=== PATIENT | male | born 1985 | race Caucasian/White ===

== ENCOUNTER 2020-06-14 12:56 | Emergency (ER) | payer OTHER ==
[~2020-06-14] VITALS: Ht 185.4 cm; Wt 107.4 kg
[2020-06-14 13:10] VITALS: BP 155/90
[2020-06-14] MEDS ORDERED: TETRACAINE 0.5% OPHTH SOLUTION 4ML BOTTLE. OS ONE (13:15)
[2020-06-14] MEDS ORDERED: FLUORESCEIN 1MG EYE STRIP. OS ONE (13:15)
[2020-06-14] MEDS ORDERED: TETRACAINE 0.5% OPHTH SOLUTION 4ML BOTTLE. ONE (13:17)
[2020-06-14] MEDS ORDERED: FLUORESCEIN 1MG EYE STRIP. ONE (13:18)
[2020-06-14] MEDS ORDERED: POLY10DR OP (13:54)
--- NOTE | 2020-06-14 13:55 | PHYS DOC ---
Past History Past Medical History: No Pertinent History Past Surgical History: No Surgical History Alcohol Use: Occasionally Adult General Chief Complaint Chief Complaint: EYE PROBLEMS HPI HPI Patient is a 34-year-old male presents to emergency department complaining of getting something in his left eye approximately 3 days ago when he was working underneath his car. Patient states that he flushed it at the time however it still feels like something is in his eye. Patient reports he thinks he might have a little blurriness however he attributes this to his eye being watery. Patient reports mild pain of 2/10 to 1-10 pain scale when he blinks. Patient states he can feel it when he closes his eyes and moves his eyes around unde rneath his closed eyelids, patient denies any problems to his right eye. Patient denies any other physical complaints or physical concerns. 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 Review of Systems Review of Systems 14 body systems of review of systems have been reviewed. See HPI for pertinent positives and negative responses, otherwise all other systems are negative, nonpertinent or noncontributory. Current Medications Current Medications Current Medications Medications (Trade) Dose Ordered Sig/Ana Start Time Stop Time Status Last Admin Dose Admin Fluorescein Sodium (Ful-Cori 1mg) 1 strip STK-MED ONCE 06/14/20 13:18 06/14/20 13:18 DC Tetracaine HCl (Tetracaine) 40 drop STK-MED ONCE 06/14/20 13:17 06/14/20 13:18 DC Allergies Allergies Allergies Coded Allergies Type Severity Reaction Last Updated Verified No Known Drug Allergies 06/14/20 No Physical Exam Physical Exam Constitutional: Well developed, well nourished, no acute distress, non-toxic appearance. 34-year-old male in no apparent distress. HENT: Normocephalic, atraumatic, bilateral external ears normal, oropharynx moist, no oral exudates, nose normal. Eyes: PERRLA, EOMI, conjunctiva normal, no discharge. No foreign bodies noted underneath his left eyelid fluorescein eye exam with Carter lamp revealed 1 mm in diameter corneal abrasion at the 2 o'clock position just outside the iris. No globular trauma appreciated, no redness or erythema appreciated. No edema of the eye appreciated. Pupils 3 mm. Cardiovascular: No cyanosis, distal cap refill less than 2 seconds. Lungs & Thorax: No obvious adventitious lung sounds appreciated audibly, patient is in no respiratory distress. Skin: Warm, dry, no erythema, no rash. Neurologic: Alert and oriented X 3, normal motor function, normal sensory function, no focal deficits noted. Psychologic: Affect normal, judgement normal, mood normal. Current Patient Data Vital Signs Vital Signs Date Time Temp Pulse Resp B/P (MAP) Pulse Ox O2 Delivery O2 Flow Rate FiO2 06/14/20 13:10 97.7 82 16 155/90 (111) 98 Room Air EKG EKG [] Radiology/Procedures Radiology/Procedures [] Heart Score C/O Chest Pain: No Risk Factors: Risk Factors: DM, Current or recent (<one month) smoker, HTN, HLP, family history of CAD, obesity. Risk Scores: Risk Factors: DM, Current or recent (<one month) smoker, HTN, HLP, family history of CAD, obesity. Course & Med Decision Making Course & Med Decision Making Pertinent Labs and Imaging studies reviewed. (See chart for details) 34-year-old male, vital signs reviewed, presents emergency department concerning getting something into his left eye 3 days ago when working on a car. Physical examination concerning for possible foreign body versus corneal abrasion left eye. 2 drops tetracaine placed into the left eye. Flushed eye with 30 cc normal saline, a visual examination under each eyelid using magnified Carter lamp with white light assistance did not find any foreign bodies. Fluorescein stain exam with black light Carter lamp assistance revealed a 1 mm diameter corneal abrasion at the 2 o'clock position just outside of the iris. Discussed findings with patient. Discussed starting patient on Polytrim eyedrops 4 times a day for the next 5 days. Patient gave verbal understanding of discharge home instructions, eyedrop use, return to ER precautions or concerns, will follow up with the [facility] ophthalmology soon. Patient had no further questions or concerns and was discharged home without incident. Dragon Disclaimer Dragon Disclaimer This electronic medical record was generated, in whole or in part, using a voice recognition dictation system. Departure Departure: Impression: Primary Impression: Corneal abrasion, left Disposition: 01 HOME / SELF CARE / HOMELESS Condition: GOOD Referrals: PCP,NO (PCP) Patient Instructions: Eye - Corneal Abrasion Additional Instructions: You were examined in the emergency department today for left eye irritation after a foreign body had fallen into it while you are doing out of work. A c lose examination of the eye was performed and there was no foreign bodies or substances in the eye. However during the eye stain procedure, there was evidence of a scratch/corneal abrasion on your left eye. These tend to heal very quickly, please use the antibiotic drops I have prescribed 4 times a day in the left eye for the next 5 days. Please follow-up with your ophthalmology specialist at the [facility] soon. Please return to the emergency department for worsening symptoms or other concerns. You may use [id number] Tylenol or Motrin for ongoing discomfort, however please see your eye doctor soon for ongoing discomfort. Please return to the emergency room immediately for vision changes. EMERGENCY DEPARTMENT GENERAL DISCHARGE INSTRUCTIONS Thank you for coming to [facility] (ED) today and trusting us with you care. We trust that you had a positivie experience in our Emergency Department. If you wish to speak to the department management, you may call the director at [phone]. YOUR FOLLOW UP INSTRUCTIONS ARE FOLLOWS: 1. Do you have a private Doctor? If you do not have a private doctor, please ask for a resource list of physicians or clinics that may be able to assist you with follow up care. 2. The Emergency Physician has interpreted your x-rays. The X-Ray specialist will also review them. If there is a change in the findings, you will be notified in 48 hours when at all possible. 3. A lab test or culture has been done, your results will be reviewed and you will be notified if you need a change in treatment. ADDITIONAL INSTRUCTIONS AND INFORMATION: 1. Your care today has been supervised by a physician who is specially trained in emergency care. Many problems require more than one evaluation for a complete diagnosis and treatment. We recommend that you schedule your follow up appointment as recommended to ensure complete treatment of you illness or injury. If you are unable to obtain follow up care and continue to have a problem, or if your condition worsens, we recommend that you return to the ED. 2. We are not able to safely determine your condition over the phone nor are we able to give sound medical advice over the phone. For these safety reasons, if you call for medical advice we will ask you to come to the ED for further evaluation. 3. If you have any questions regarding these discharge instructions please call the ED at [phone]. SAFETY INFORMATION: In the interest of safety, wellness, and injury prevention; we encourage you to wear your sealbelt, if you smoke; quite smoking, and we encourage family to use a protective helmet for bicycling and other sporting events that present an increased risk for head injury. IF YOUR SYMPTOMS WORSEN OR NEW SYMPTOMS DEVELOP, OR YOU HAVE CONCERNS ABOUT YOUR CONDITION; OR IF YOUR CONDITION WORSENS WHILE YOU ARE WAITING FOR YOUR FOLLOW UP APPOINTMENT; EITHER CONTACT YOUR PRIMARY CARE DOCTOR, THE PHYSICIAN WHOSE NAME AND NUMBER YOU WERE GIVEN, OR RETURN TO THE ED IMMEDIATELY. Scripts Polymyxin B Sulf/Trimethoprim (POLYTRIM EYE DROPS) 10 Ml Drops 10 ML OP QID for CORNEAL ABRASION LEFT EYE for 5 Days, #2 DROP 0 Refills Prov: TAE SANCHEZ APRN 06/14/20 Problem Qualifiers Primary Impression: Corneal abrasion, left Encounter type: initial encounter Qualified Codes: S05.02XA - Injury of conjunctiva and corneal abrasion without foreign body, left eye, initial encounter TAE SANCHEZ APRN Jun 14, 2020 13:55
== END 2020-06-14 13:58 | disposition home or self-care (01) ==
LOC: ER 12:56
DX: S05.02XA Injury of conjunctiva and corneal abrasion without foreign body, left eye, initial encounter (principal); X58.XXXA Exposure to other specified factors, initial encounter; Y93.89 Activity, other specified; Y92.89 Other specified places as the place of occurrence of the external cause; Y99.8 Other external cause status
CPT/HCPCS: 99283